=== PATIENT | male | born 1950 | race Asian ===

== ENCOUNTER 2016-10-26 19:50 | Emergency (ER) | payer OTHER ==
[~2016-10-26] VITALS: Ht 162.6 cm; Wt 68.2 kg
[~2016-10-26 19:50] MED LIST: BENADRYL50 MG PO; PEPCID AC20 MG PO; PREDNISONE50 MG PO
[2016-10-26 21:26] LABS: CHLORIDE 105 mEq/L (99-109); POTASSIUM 3.5 mEq/L (3.7-5.4); SODIUM 139 mEq/L (136-147)
[2016-10-26 21:28] LABS: GLUCOSE 279 mg/dL (70-99)
[2016-10-26 21:29] LABS: ANION GAP 12 MEQ/L (2-14)
[2016-10-26 21:32] LABS: GFR ESTIMATE (CALCULATED) > 59 mL/min/; UREA NITROGEN (BUN) 13 mg/dL (9-23)
[2016-10-26 21:35] LABS: HEMATOCRIT 43.3 % (38.0-50.0); MCH 30.4 PG (29.0-34.0); MCHC 35.8 G/DL (30.0-36.0); MCV 84.9 FL (86-99); MEAN PLAT.VOLUME 10.4 uM^3 (9.0-12.4); PLATELET COUNT 132 K/uL (156-360); RBC DIS.WIDTH-CV 13.9 % (11.8-14.6); RBC DIS.WIDTH-SD 42.9 % (39-53); TROP-I INTERPRETATION NEGATIVE; TROPONIN-I < 0.01 ng/mL (0.0-0.30); WHITE BLOOD COUNT 11.7 K/uL (4.1-10.2)
[2016-10-26 22:34] LABS: INFLUENZA A VIRAL ANTIGEN NEGATIVE; INFLUENZA B VIRAL ANTIGEN NEGATIVE
[2016-10-26] MEDS ORDERED: ZOFRAN ODT4 MG PO (22:35)
[2016-10-26 23:26] VITALS: BP 130/80
== END 2016-10-26 23:27 | disposition home or self-care (01) ==
LOC: EME 19:50
PROVIDERS: Emergency Medicine
DX: K52.9 Noninfective gastroenteritis and colitis, unspecified (principal)
CPT/HCPCS: 80048; 84484; 85027; 87502; 93005; 99281; 99284; J7030

== ENCOUNTER 2018-03-14 13:56 | Emergency (ER) | payer OTHER ==
[~2018-03-14] VITALS: Ht 162.6 cm; Wt 63.5 kg
[~2018-03-14 13:56] MED LIST changes: +ZOFRAN ODT4 MG PO
[2018-03-14 14:51] LABS: HEMOGLOBIN 14.9 G/DL (12.5-16.6); MCH 31.4 PG (29.0-34.0); MCHC 36.3 G/DL (30.0-36.0); MCV 86.3 FL (86-99); PLATELET COUNT 254 K/uL (156-360); RBC DIS.WIDTH-CV 12.2 % (11.8-14.6); RBC DIS.WIDTH-SD 38.5 % (39-53); RED BLOOD COUNT 4.75 M/uL (4.00-5.50); WHITE BLOOD COUNT 11.1 K/uL (4.1-10.2)
[2018-03-14 15:10] LABS: CHLORIDE 108 mEq/L (99-109); POTASSIUM 4.3 mEq/L (3.7-5.4); SODIUM 137 mEq/L (136-147)
[2018-03-14 15:12] LABS: GLUCOSE 159 mg/dL (70-99)
[2018-03-14 15:16] LABS: CREATININE 1.2 mg/dL (0.6-1.3); GFR ESTIMATE (CALCULATED) > 59 mL/min/ (58.99-99999)
[2018-03-14 15:17] LABS: UREA NITROGEN (BUN) 17 mg/dL (9-23)
[2018-03-14 15:20] LABS: TROP-I INTERPRETATION NEGATIVE; TROPONIN-I < 0.01 ng/mL (0.0-0.30)
[2018-03-14 16:54] VITALS: BP 141/78
== END 2018-03-14 17:22 | disposition home or self-care (01) ==
LOC: EME 13:56
PROVIDERS: Emergency Medicine
DX: E86.0 Dehydration (principal); R55 Syncope and collapse; I10 Essential (primary) hypertension
CPT/HCPCS: 80048; 84484; 85027; 93005; J7030